=== PATIENT | female | born 1975 | race Hispanic/Latino ===

== ENCOUNTER 2017-11-27 09:09 | Inpatient (IN) | payer SELFPAY ==
[~2017-11-27] VITALS: Ht 154.9 cm; Wt 61.0 kg
[2017-11-27] VITALS (8 sets, daily range): BP systolic 115–123; BP diastolic 71–83
[2017-11-27] MEDS ORDERED: SODIUM CHLORIDE 0.9% 1000ML 1,000 ML IV STA (09:32)
[2017-11-27] MEDS ORDERED: PANTOPRAZOLE 40 MG 10ML VIAL IV STA (09:32)
[2017-11-27 09:50] LABS: BILIRUBIN,URINE NEGATIVE (NEGATIVE); CLARITY,URINE CLEAR (CLEAR); COLOR,URINE YELLOW (YELLOW); KETONES,URINE NEGATIVE (NEGATIVE); LEUKOCYTE ESTERASE ,URINE NEGATIVE (NEGATIVE); NITRITE,URINE NEGATIVE (NEGATIVE); PROTEIN,URINE DIPSTICK NEGATIVE (NEGATIVE); URINE UROBILINOGEN 0.2 mg/dL (0.2 - 1)
[2017-11-27 10:06] LABS: EPITHELIAL CELLS,URINE FEW /LPF
[2017-11-27] MEDS ORDERED: SODIUM CHLORIDE 0.9% 250ML 250 ML IV ONE (10:15)
[2017-11-27 10:26] LABS: BASOPHILS % 0.7 % (0.0-1.0); EOSINOPHILS # (AUTO) 0.1 (0.0-0.4); EOSINOPHILS % 1.1 % (0.0-6.0); HEMATOCRIT 26.2 % (34.2-44.1); LYMPHOCYTES # (AUTO) 1.9 (1.0-3.2); LYMPHOCYTES % 33.5 % (18.0-39.1); MEAN CORPUSCULAR HEMOGLOBIN 19.4 pg (28-32); MEAN CORPUSCULAR HGB CONC 28.6 g/dL (31-35); MEAN CORPUSCULAR VOLUME 67.7 fL (81-99); MONOCYTES # (AUTO) 0.3 (0.2-0.8); MONOCYTES % 5.5 % (4.4-11.3); NEUTROPHILS # (AUTO) 3.3 (2.1-6.9); PLATELET COUNT 449 x10e3/uL (140-360); RED BLOOD COUNT 3.87 x10e6/uL (3.6-5.1); RED CELL DISTRIBUTION WIDTH 17.2 % (11.7-14.4)
[2017-11-27 10:29] LABS: ALANINE AMINOTRANSFERASE 13 IU/L (0-55); ALBUMIN 4.2 g/dL (3.5-5.0); ALBUMIN/GLOBULIN RATIO 1.3 (0.8-2.0); ALKALINE PHOSPHATASE 85 IU/L (40-150); AMYLASE 43 U/L (25-125); BLOOD UREA NITROGEN 13 mg/dL (7-26); BUN/CREATININE RATIO 20 (6-25); CALCIUM 9.1 mg/dL (8.4-10.2); CARBON DIOXIDE 23 mmol/L (22-29); CHLORIDE 105 mmol/L (98-107); CREATININE, SERUM 0.64 mg/dL (0.57-1.11); EST GLOMERULAR FILTRATION RATE > 60 ML/MIN (60-); GLUCOSE 91 mg/dL (74-118); LIPASE 15 U/L (8-78); SODIUM 138 mmol/L (136-145)
[2017-11-27 10:29] LABS: HEMOGLOBIN 7.5 g/dL (12.0-16.0)
[2017-11-27 10:38] LABS: INR 1.09; PROTHROMBIN TIME 13.3 seconds (11.9-14.5)
[2017-11-27 10:39] LABS: PARTIAL THROMBOPLASTIN TIME 33.8 seconds (23.8-35.5)
[2017-11-27] MEDS: SODIUM CHLORIDE 0.9% 1000ML 1,000 ML IV SCH ×2 (14:41→17:19)
[2017-11-27] MEDS ORDERED: SODIUM CHLORIDE 0.9% 250ML 250 ML ONE (15:16)
[2017-11-27] MEDS: ACETAMINOPHEN 325 MG TAB PO PRN (18:35)
[2017-11-28] MEDS ORDERED: PEG (High)/E-LYTE SOLN 4,000 ML BTL PO ONE (01:30)
[2017-11-28] MEDS: SODIUM CHLORIDE 0.9% 1000ML 1,000 ML IV SCH ×3 (01:36→18:33)
[2017-11-28 06:58] LABS: BASOPHILS % 0.9 % (0.0-1.0); EOSINOPHILS % 0.9 % (0.0-6.0); HEMATOCRIT 31.4 % (34.2-44.1); HEMOGLOBIN 9.5 g/dL (12.0-16.0); LYMPHOCYTES # (AUTO) 1.3 (1.0-3.2); LYMPHOCYTES % 29.2 % (18.0-39.1); MEAN CORPUSCULAR HEMOGLOBIN 21.4 pg (28-32); MEAN CORPUSCULAR HGB CONC 30.3 g/dL (31-35); MEAN CORPUSCULAR VOLUME 70.7 fL (81-99); MONOCYTES # (AUTO) 0.3 (0.2-0.8); MONOCYTES % 6.4 % (4.4-11.3); NEUTROPHILS # (AUTO) 2.8 (2.1-6.9); NEUTROPHILS % 62.4 % (38.7-80.0); PLATELET COUNT 431 x10e3/uL (140-360); RED BLOOD COUNT 4.44 x10e6/uL (3.6-5.1); RED CELL DISTRIBUTION WIDTH 19.1 % (11.7-14.4)
[2017-11-28 07:24] LABS: ALANINE AMINOTRANSFERASE 13 IU/L (0-55); ALBUMIN 4.1 g/dL (3.5-5.0); ALBUMIN/GLOBULIN RATIO 1.4 (0.8-2.0); ALKALINE PHOSPHATASE 82 IU/L (40-150); ANION GAP 13.4 mmol/L (8-16); BLOOD UREA NITROGEN 7 mg/dL (7-26); BUN/CREATININE RATIO 11 (6-25); CALCIUM 8.9 mg/dL (8.4-10.2); CARBON DIOXIDE 24 mmol/L (22-29); CHLORIDE 107 mmol/L (98-107); CREATININE, SERUM 0.61 mg/dL (0.57-1.11); EST GLOMERULAR FILTRATION RATE > 60 ML/MIN (60-); GLUCOSE 74 mg/dL (74-118); POTASSIUM 3.4 mmol/L (3.5-5.1); SODIUM 141 mmol/L (136-145)
[2017-11-28 07:30] VITALS: BP 115/79
[2017-11-28 07:55] LABS: FOLATE 16.8 ng/mL (7.0-15.4)
[2017-11-28 08:12] VITALS: BP 121/74
[2017-11-28 08:22] LABS: FERRITIN 12.99 ng/mL (4.63-204.00)
[2017-11-28] MEDS: PANTOPRAZOLE 40 MG 10ML VIAL IV SCH (09:00)
[2017-11-28 11:49] VITALS: BP 119/73
[2017-11-28 16:01] VITALS: BP 133/70
--- NOTE | 2017-11-28 16:05 | Operative Report ---
DATE OF PROCEDURE: November 28, 2017 REFERRING PHYSICIAN: Dr. Dinesh Kraus and Dr. Edenilson Cheng. PROCEDURE PERFORMED: Colonoscopy. INDICATIONS FOR COLONOSCOPY: Anemia, history of rectal bleeding. MEDICATION: Patient was done under MAC. Please see anesthesiologist's note. PROCEDURE: With patient in the left lateral decubitus position, the flexible fiberoptic Olympus colonoscope was inserted into the rectum with ease and advanced all the way to the cecum. The scope was then withdrawn slowly. Mucosa overlying the cecum appeared to be within normal limits. The ileocecal valve was intubated, and the scope was advanced into the terminal ileum, which appeared to be within normal limits. The scope was then withdrawn back into the colon. It was then withdrawn slowly, and some diverticular disease was noted in the ascending colon. The transverse, descending, sigmoid and rectum appeared to be within normal limits. The scope was then retroflexed into the distal rectum, and large internal hemorrhoids with some evidence of recent hemorrhage were noted. The scope was then straightened out. It was subsequently withdrawn. Patient tolerated procedure well. IMPRESSION: 1. Diverticulosis, ascending colon. 2. Large internal hemorrhoids with some stigmata of recent hemorrhage. PLAN: Follow H\T\H. Initiate Anusol-HC suppositories b.i.d. If patient rebleeds, then a GI bleed scan and, if negative, a Meckel scan and, if unrevealing, then possibly an EGD might need to be done in addition to a capsule endoscopy. Job#: [id number] EV cc:MD TYREE CASPER MD
[2017-11-28] MEDS ORDERED: MIDAZOLAM HCL 2 MG/2 ML VIAL ONE (17:19)
[2017-11-28] MEDS ORDERED: FENTANYL CITRATE/PF 100MCG/2 ML INJ ONE (17:19)
[2017-11-28] MEDS ORDERED: PROPOFOL IV EMULSION 10 MG/ML 20 ML VIAL ONE (18:11)
[2017-11-28 20:00] VITALS: BP 118/73
[2017-11-28] MEDS: HYDROCORTISONE ACETATE 25 MG/SUPP.RECT SUPP RC SCH (21:01)
[2017-11-29] VITALS (7 sets, daily range): BP systolic 110–141; BP diastolic 62–90
[2017-11-29] MEDS: SODIUM CHLORIDE 0.9% 1000ML 1,000 ML IV SCH ×3 (00:08→16:10)
[2017-11-29] MEDS: PANTOPRAZOLE 40 MG 10ML VIAL IV SCH (08:20)
[2017-11-29] MEDS: HYDROCORTISONE ACETATE 25 MG/SUPP.RECT SUPP RC SCH ×3 (08:20→20:23)
[2017-11-29 11:06] LABS: HEMATOCRIT 31.2 % (34.2-44.1); HEMOGLOBIN 9.3 g/dL (12.0-16.0)
[2017-11-29] MEDS ORDERED: POTASSIUM CHLORIDE 10 MEQ TABCR PO NR (11:30)
[2017-11-30] VITALS (8 sets, daily range): BP systolic 118–160; BP diastolic 73–83
[2017-11-30] MEDS: ACETAMINOPHEN 325 MG TAB PO PRN (01:18)
[2017-11-30] MEDS: SODIUM CHLORIDE 0.9% 1000ML 1,000 ML IV SCH ×3 (02:28→18:09)
[2017-11-30 06:07] LABS: BASOPHILS # (AUTO) 0.1 (0.0-0.1); BASOPHILS % 0.8 % (0.0-1.0); EOSINOPHILS # (AUTO) 0.1 (0.0-0.4); EOSINOPHILS % 1.7 % (0.0-6.0); HEMATOCRIT 26.5 % (34.2-44.1); LYMPHOCYTES # (AUTO) 2.5 (1.0-3.2); LYMPHOCYTES % 37.6 % (18.0-39.1); MEAN CORPUSCULAR HEMOGLOBIN 21.3 pg (28-32); MEAN CORPUSCULAR HGB CONC 30.2 g/dL (31-35); MEAN CORPUSCULAR VOLUME 70.7 fL (81-99); MONOCYTES # (AUTO) 0.6 (0.2-0.8); MONOCYTES % 8.9 % (4.4-11.3); NEUTROPHILS # (AUTO) 3.3 (2.1-6.9); NEUTROPHILS % 50.7 % (38.7-80.0); PLATELET COUNT 343 x10e3/uL (140-360); RED BLOOD COUNT 3.75 x10e6/uL (3.6-5.1); RED CELL DISTRIBUTION WIDTH 20.2 % (11.7-14.4)
[2017-11-30 06:34] LABS: ALANINE AMINOTRANSFERASE 12 IU/L (0-55); ALBUMIN 3.2 g/dL (3.5-5.0); ALBUMIN/GLOBULIN RATIO 1.4 (0.8-2.0); ALKALINE PHOSPHATASE 72 IU/L (40-150); ANION GAP 9.5 mmol/L (8-16); BLOOD UREA NITROGEN < 5 mg/dL (7-26); CALCIUM 8.3 mg/dL (8.4-10.2); CARBON DIOXIDE 26 mmol/L (22-29); CHLORIDE 109 mmol/L (98-107); CREATININE, SERUM 0.55 mg/dL (0.57-1.11); EST GLOMERULAR FILTRATION RATE > 60 ML/MIN (60-); GLUCOSE 79 mg/dL (74-118); POTASSIUM 3.5 mmol/L (3.5-5.1); SODIUM 141 mmol/L (136-145)
[2017-11-30 06:37] LABS: BUN/CREATININE RATIO 9 (6-25)
[2017-11-30] MEDS: HYDROCORTISONE ACETATE 25 MG/SUPP.RECT SUPP RC SCH ×3 (08:35→21:10)
[2017-11-30] MEDS: PANTOPRAZOLE 40 MG 10ML VIAL IV SCH ×2 (08:35→17:00)
[2017-11-30] MEDS ORDERED: SODIUM CHLORIDE 0.9% 250ML 250 ML IV ONE (10:00)
[2017-11-30] MEDS ORDERED: DEXAMETHASONE SOD PHOS INJ 4 MG/ML VIAL ONE (11:47)
[2017-11-30] MEDS ORDERED: LIDOCAINE HCL 2% LOCAL INJ 5 ML SDV VIAL INJ ONE (11:47)
[2017-11-30] MEDS ORDERED: SEVOFLURANE INHAL SOLN 250 ML PEN BTL ONE (11:47)
[2017-11-30] MEDS ORDERED: ONDANSETRON HCL INJ 2 MG/ML VIAL ONE (11:47)
[2017-11-30] MEDS ORDERED: PROPOFOL IV EMULSION 10 MG/ML 20 ML VIAL ONE (11:47)
[2017-11-30] MEDS ORDERED: ACETAMINOPHEN 1000 MG/100 ML IV ONE (11:47)
[2017-12-01] VITALS (7 sets, daily range): BP systolic 118–137; BP diastolic 61–75
[2017-12-01] MEDS: SODIUM CHLORIDE 0.9% 1000ML 1,000 ML IV SCH (05:24)
[2017-12-01] MEDS: PANTOPRAZOLE 40 MG 10ML VIAL IV SCH (09:00)
[2017-12-01] MEDS: HYDROCORTISONE ACETATE 25 MG/SUPP.RECT SUPP RC SCH (09:00)
[2017-12-01 11:07] LABS: BASOPHILS # (AUTO) 0.1 (0.0-0.1); BASOPHILS % 0.7 % (0.0-1.0); EOSINOPHILS # (AUTO) 0.1 (0.0-0.4); HEMATOCRIT 37.2 % (34.2-44.1); HEMOGLOBIN 11.8 g/dL (12.0-16.0); LYMPHOCYTES # (AUTO) 2.6 (1.0-3.2); LYMPHOCYTES % 31.8 % (18.0-39.1); MEAN CORPUSCULAR HEMOGLOBIN 23.3 pg (28-32); MEAN CORPUSCULAR HGB CONC 31.7 g/dL (31-35); MEAN CORPUSCULAR VOLUME 73.4 fL (81-99); MONOCYTES # (AUTO) 0.6 (0.2-0.8); MONOCYTES % 7.6 % (4.4-11.3); NEUTROPHILS # (AUTO) 4.8 (2.1-6.9); NEUTROPHILS % 58.7 % (38.7-80.0); PLATELET COUNT 370 x10e3/uL (140-360); RED BLOOD COUNT 5.07 x10e6/uL (3.6-5.1); RED CELL DISTRIBUTION WIDTH 20.2 % (11.7-14.4)
[2017-12-01 11:23] LABS: BLOOD UREA NITROGEN 6 mg/dL (7-26); BUN/CREATININE RATIO 10 (6-25); CALCIUM 9.2 mg/dL (8.4-10.2); CARBON DIOXIDE 18 mmol/L (22-29); CHLORIDE 107 mmol/L (98-107); CREATININE, SERUM 0.59 mg/dL (0.57-1.11); EST GLOMERULAR FILTRATION RATE > 60 ML/MIN (60-); SODIUM 141 mmol/L (136-145)
[2017-12-01 11:24] LABS: GLUCOSE 51 mg/dL (74-118)
[2017-12-01] MEDS ORDERED: DEXTROSE 50% SYRINGE 50 ML IV ONE ×2 (11:28→12:00)
[2017-12-01] MEDS ORDERED: POTASSIUM CHLORIDE 20MEQ/100ML 200 ML ONE (11:32)
[2017-12-01] MEDS ORDERED: POTASSIUM CHLORIDE 20MEQ/100ML 200 ML IV ONE (12:00)
[2017-12-01] MEDS ORDERED: SODIUM CHLORIDE 0.9% 1000ML 1,000 ML ONE (13:24)
[2017-12-01] MEDS: DEXTROSE 5%/LACTATED RINGERS 1,000 ML IV SCH (15:10)
[2017-12-01] MEDS ORDERED: HYDROMORPHONE 1MG/1ML INJ IV PRN (15:15)
--- NOTE | 2017-12-01 17:19 | Operative Report ---
DATE OF PROCEDURE: December 01, 2017 PREOPERATIVE DIAGNOSIS: Prolapsing bleeding internal and external hemorrhoids. POSTOPERATIVE DIAGNOSIS: Prolapsing bleeding internal and external hemorrhoids. OPERATION PERFORMED: Internal and external hemorrhoidectomy. ANESTHESIA: General. COMPLICATIONS: None. ESTIMATED BLOOD LOSS: 75 mL. DESCRIPTION OF PROCEDURE: With the patient lying in bed in the lithotomy position, under good general anesthesia, the perineum was prepped with Betadine solution and draped in the usual manner. A complete anorectal block was then performed using 0.25% Marcaine with epinephrine and 1% lidocaine. Examination at this point revealed there were 3 large groups of hemorrhoids present; one at the 12 o'clock, the other one at the 5 o'clock and at the 8 o'clock position, which were acutely inflamed, particularly the one at the 8 o'clock position showed all the stigmata of very recent bleeding. All 3 groups were done in similar fashion. The base of the internal component was then ligated with a 0 chromic suture. The external component and the internal component was then sharply resected with the scissors. The bases of the hemorrhoids and the mucosa were then further oversewn with the same 0 chromic suture, and the mucosa was then reapproximated to the skin with interrupted sutures of 3-0 chromic. All 3 groups were done in similar fashion. Hemostasis was ascertained. Gelfoam pack impregnated with Xylocaine was placed. A dressing was applied. The sponge, lap, and needle count was correct. Patient tolerated the procedure well and returned to the recovery room in stable condition. Job#: [id number] KIMBER
[2017-12-01] MEDS: CEFOXITIN SOD 1 GM VIAL IV SCH (17:49)
[2017-12-01] MEDS ORDERED: CEFOXITIN 1GM/ DEXTROSE 50ML 50 ML IV SCH (18:00)
[2017-12-01] MEDS ORDERED: MIDAZOLAM HCL 2 MG/2 ML VIAL ONE (18:40)
[2017-12-01] MEDS ORDERED: FENTANYL CITRATE/PF 100MCG/2 ML INJ ONE (18:40)
[2017-12-01] MEDS ORDERED: SODIUM CHLORIDE 0.9% 50ML 50 ML ONE (21:24)
[2017-12-01] MEDS: PROMETHAZINE HCL (IM) 25 MG/ML VIAL IV PRN (21:49)
[2017-12-01] MEDS: HYDROMORPHONE 2MG/ML INJ IV PRN (21:49)
[2017-12-02] VITALS (8 sets, daily range): BP systolic 118–141; BP diastolic 57–76
[2017-12-02] MEDS: CEFOXITIN SOD 1 GM VIAL IV SCH (00:08)
[2017-12-02] MEDS: HYDROCODONE/APAP 7.5MG-325MG 1 EA TAB PO PRN ×2 (00:08→06:33)
[2017-12-02] MEDS: HYDROMORPHONE 2MG/ML INJ IV PRN ×2 (05:43→08:55)
[2017-12-02] MEDS: PANTOPRAZOLE SOD 40 MG TABEC PO SCH (08:04)
[2017-12-02] MEDS: DEXTROSE 5%/LACTATED RINGERS 1,000 ML IV SCH (08:04)
[2017-12-02] MEDS ORDERED: SODIUM CHLORIDE 0.9% 50ML 50 ML ONE (08:40)
[2017-12-02] MEDS: PROMETHAZINE HCL (IM) 25 MG/ML VIAL IV PRN (09:22)
[2017-12-02] MEDS ORDERED: KETOROLAC TROMETHAMINE 30 MG/ML VIAL IV PRN (10:15)
[2017-12-02] MEDS ORDERED: TRIAMCINOLONE ACET 0.1% CREAM 15 GM TUBE TOP PRN (10:15)
[2017-12-02] MEDS ORDERED: KETOROLAC TROMETHAMINE 30 MG/ML VIAL IM PRN (11:00)
[2017-12-02] MEDS ORDERED: KEFLEX500 MG PO (11:44)
[2017-12-02] MEDS ORDERED: NORCO 7.5-3251 EACH PO (11:45)
[2017-12-02] MEDS ORDERED: SURFAK240 MG PO (11:45)
[2017-12-02] MEDS ORDERED: ONDANSETRON HCL 4 MG ORAL DISINTEGRATING TAB PO PRN (13:45)
[2017-12-02 14:19] LABS: BLOOD UREA NITROGEN 5 mg/dL (7-26); BUN/CREATININE RATIO 8 (6-25); CALCIUM 8.6 mg/dL (8.4-10.2); CARBON DIOXIDE 23 mmol/L (22-29); CHLORIDE 103 mmol/L (98-107); CREATININE, SERUM 0.59 mg/dL (0.57-1.11); EST GLOMERULAR FILTRATION RATE > 60 ML/MIN (60-); GLUCOSE 164 mg/dL (74-118); SODIUM 134 mmol/L (136-145)
[2017-12-02] MEDS ORDERED: POTASSIUM CHLORIDE 20 MEQ TAB CR PO ONE ×2 (17:00→18:00)
[2017-12-02] MEDS: KETOROLAC TROMETHAMINE 30 MG/ML VIAL IV PRN (20:59)
[2017-12-02] MEDS ORDERED: SENNOSIDES 8.6 MG TAB PO SCH (21:00)
[2017-12-02] MEDS ORDERED: MAGNESIUM HYDROXIDE 30 ML UDC PO ONE (21:00)
[2017-12-03] VITALS: BP 129/61
[2017-12-03 04:00] VITALS: BP 131/64
[2017-12-03] MEDS: KETOROLAC TROMETHAMINE 30 MG/ML VIAL IV PRN (05:00)
[2017-12-03 07:23] LABS: BASOPHILS # (AUTO) 0.1 (0.0-0.1); BASOPHILS % 0.5 % (0.0-1.0); EOSINOPHILS # (AUTO) 0.1 (0.0-0.4); EOSINOPHILS % 0.8 % (0.0-6.0); HEMATOCRIT 34.3 % (34.2-44.1); HEMOGLOBIN 10.6 g/dL (12.0-16.0); LYMPHOCYTES # (AUTO) 1.9 (1.0-3.2); LYMPHOCYTES % 14.4 % (18.0-39.1); MEAN CORPUSCULAR HGB CONC 30.9 g/dL (31-35); MEAN CORPUSCULAR VOLUME 74.6 fL (81-99); MONOCYTES # (AUTO) 0.8 (0.2-0.8); MONOCYTES % 6.1 % (4.4-11.3); NEUTROPHILS # (AUTO) 10.2 (2.1-6.9); NEUTROPHILS % 77.9 % (38.7-80.0); PLATELET COUNT 328 x10e3/uL (140-360); RED CELL DISTRIBUTION WIDTH 21.7 % (11.7-14.4)
[2017-12-03 07:47] LABS: ANION GAP 12.9 mmol/L (8-16); BLOOD UREA NITROGEN < 5 mg/dL (7-26); CALCIUM 9.4 mg/dL (8.4-10.2); CARBON DIOXIDE 26 mmol/L (22-29); CHLORIDE 106 mmol/L (98-107); CREATININE, SERUM 0.63 mg/dL (0.57-1.11); EST GLOMERULAR FILTRATION RATE > 60 ML/MIN (60-); GLUCOSE 146 mg/dL (74-118); POTASSIUM 3.9 mmol/L (3.5-5.1); SODIUM 141 mmol/L (136-145)
[2017-12-03 07:48] VITALS: BP 119/64
[2017-12-03 07:50] LABS: BUN/CREATININE RATIO 8 (6-25)
[2017-12-03] MEDS: PANTOPRAZOLE SOD 40 MG TABEC PO SCH (08:39)
[2017-12-03 09:21] VITALS: BP 119/64
== END 2017-12-03 10:19 | disposition home or self-care (01) | DRG 348 ==
LOC: ER 09:09 → ERHOLD 10:53 → IMCU 13:21 → OBSVTOIN 11-30 10:06 → MED/SURG 11-30 10:58
PROC: 30233N1 Transfusion of Nonautologous Red Blood Cells into Peripheral Vein, Percutaneous Approach (ICD-10-PCS; 2017-11-27)
PROC: 0DJD8ZZ Inspection of Lower Intestinal Tract, Via Natural or Artificial Opening Endoscopic (ICD-10-PCS; 2017-11-28)
PROC: 06BY0ZC Excision of Hemorrhoidal Plexus, Open Approach (ICD-10-PCS; principal; 2017-12-01 12:00)
DX: K64.8 Other hemorrhoids (principal); D62 Acute posthemorrhagic anemia; K92.1 Melena; E87.2 Acidosis; K57.30 Diverticulosis of large intestine without perforation or abscess without bleeding; R10.13 Epigastric pain; E87.6 Hypokalemia
CPT/HCPCS: 36415; 45378; 80048; 80053; 81001; 81025; 82150; 82607; 82728; 82746; 82948; 83540; 83690; 84466; 85014; 85018; 85025; 85045; 85610; 85730; 86850; 86900; 86920; 88304; 96361; 96374; 99284; G0378; J0694; J1100; J1885; J2001; J2250; J2405; J2550; J3480; J7030; J7050; J7120; J7799; P9016

== ENCOUNTER → 2019-03-03 | Outpatient (CLI) | payer BC ==
[~2019-03-03] MED LIST: KEFLEX500 MG PO; NORCO 7.5-3251 EACH PO; SURFAK240 MG PO
--- NOTE | 2019-03-11 09:29 | Diagnostic Imaging Report ---
#[id number] - MGSCRBIL #BILATERAL FIRST EVER DIGITAL SCREENING MAMMOGRAM WITH CAD: 03/03/2019 CLINICAL: Routine screening. Routine screening. Baseline examination. No prior exams were available for comparison. Current study contains 4 films. The tissue of both breasts is heterogeneously dense. This may lower the sensitivity of mammography. Current study was also evaluated with a Computer Aided Detection (CAD) system. Benign appearing microcalcifications, left breast. No significant masses, calcifications, or other findings are seen in either breast. IMPRESSION: BENIGN There is no mammographic evidence of malignancy. A 1 year screening mammogram is recommended. The patient will be notified by letter of the results. HAWK OGDEN M.D. ct/penrad:03/07/2019 12:39:39 Straw Boss: Daria BUNN)(Dante), [facility] letter sent: Normal Exam Mammogram BI-RADS: 2 Benign
== END ==
LOC: MAMMO 13:13
PROVIDERS: ATTEND Internal Medicine
DX: Z12.31 Encounter for screening mammogram for malignant neoplasm of breast (principal)
CPT/HCPCS: 77067

== ENCOUNTER → 2020-02-20 | Outpatient (CLI) | payer BC ==
--- NOTE | 2020-02-25 13:41 | Diagnostic Imaging Report ---
#[id number] - MGSCRBIL #BILATERAL DIGITAL SCREENING MAMMOGRAM WITH CAD: 02/20/2020 CLINICAL: Routine screening. Comparison is made to exam dated: 03/03/2019 mammogram - [facility]. The tissue of both breasts is heterogeneously dense. This may lower the sensitivity of mammography. Current study was also evaluated with a Computer Aided Detection (CAD) system. There are benign lymph nodes in both breasts. There also is a benign calcification in the left breast. No significant masses, calcifications, or other findings are seen in either breast. There has been no significant interval change. IMPRESSION: BENIGN There is no mammographic evidence of malignancy. A 1 year screening mammogram is recommended. The patient will be notified by letter of the results. YG edgar/iglesia:02/25/2020 11:05:35 Field Services Director: Daria VERDIN(Nadeem)(M), [facility] letter sent: Compared to Prior B9 Mammogram BI-RADS: 2 Benign
== END ==
LOC: MAMMO 13:02
PROVIDERS: ATTEND Internal Medicine
DX: Z12.31 Encounter for screening mammogram for malignant neoplasm of breast (principal)
CPT/HCPCS: 77067

== ENCOUNTER → 2021-03-16 | Outpatient (CLI) | payer OTHER | LOC: MAMMO 08:46 | PROVIDERS: ATTEND Internal Medicine | DX: Z12.31 Encounter for screening mammogram for malignant neoplasm of breast (principal) | CPT/HCPCS: 77067 ==